=== PATIENT | male | born 1995 | race Caucasian/White ===

== ENCOUNTER → 2023-01-02 | Outpatient (CLI) | payer OTHER | LOC: MHCPAIN 08:17 | DX: M51.26 Other intervertebral disc displacement, lumbar region (principal); M54.50 Low back pain, unspecified; M53.3 Sacrococcygeal disorders, not elsewhere classified; M54.2 Cervicalgia; G57.11 Meralgia paresthetica, right lower limb | CPT/HCPCS: G0463 ==